=== PATIENT | female | born 1960 | race Caucasian/White ===

== ENCOUNTER 2020-03-23 11:12 | Outpatient (REF) | payer OTHER, SELFPAY ==
[2020-03-23 11:41] LABS: COVID-19 Test Negative (Negative); IDNOW Serial# 55D5AD1C
== END 2020-03-23 11:13 | disposition home or self-care (01) ==
LOC: HO.LAB 11:12
PROVIDERS: Visit Provider Internal Medicine
DX: Z20.828 Contact with and (suspected) exposure to other viral communicable diseases (principal)
CPT/HCPCS: 87635; C9803

== ENCOUNTER 2022-12-05 08:07 | Outpatient (AMB) | payer OTHER, SELFPAY ==
--- NOTE | 2022-12-05 08:14 | AM.OFFWIN_ITS ---
Intake Vital Signs 12/05/22 08:17 BP 112/76 Blood Pressure Location Rt brachial Position Sitting Pulse 103 H Pulse Source Pulse Oximeter Pulse Oximetry (%) 98 Oxygen Delivery Method Room Air Intake Visit Reasons: EP Back/rib pain (lobby) Intake Note: Patient here because she coughed and sneezed at the same time and now has mid back and rib pain which has been present for about 10 days. Patient Tobacco Use Status: Current everyday Tobacco user Allergies No Known Allergies [No Known Allergies*] Allergy (Unverified 12/05/22 08:16) Do you need a note to return to daycare/school/sports/work: Yes HPI HPI Comments History of Present Illness Details The patient presents to urgent care for evaluation of mid right back pain. She states it started about 10 days ago after coughing and sneezing at the same time. She believes she pulled a muscle. She has been using alternating naproxen ibuprofen Tylenol. She reports that the pain has been present and is not improving. 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 She has been using heating and ice [facility] Social History Patient Tobacco Use Status: Current everyday Tobacco user Review of Systems Const Denies weakness Eyes Reports no additional complaints ENT Denies dysphagia Card Reports no additional complaints, Denies dyspnea and Denies dyspnea on exertion Resp Denies cough, Denies hemoptysis, Denies dyspnea and Denies dyspnea on exertion GI Denies dysphagia Denies urinary incontinence Musc Reports back pain, Denies muscle weakness, Denies numbness and Denies tingling Neuro Denies focal weakness, Denies numbness, Denies tingling, Denies paresthesias and Denies weakness Physical Exam Vital Signs: Last Vital Signs Pulse 103 H 12/05/22 08:17 BP 112/76 12/05/22 08:17 Pulse Ox 98 12/05/22 08:17 Oxygen Delivery Method Room Air 12/05/22 08:17 Const General: healthy appearing and no acute distress Orientation/consciousness: patient oriented x3 Eyes General: appearance normal, both eyes and all related structures Pupils: Equal, round and reactive pupils present Resp Effort & Inspection: normal respiratory effort and able to speak in complete sentences General: Yes no CVA tenderness Back/Spine/Pelvis Back: no CVA tenderness Thoracic/Lumbar Spine: thoracic and lumbar spine normal to inspection, paraspinal muscle tenderness (spasm of paraspinal musculature lower thoracic) on the right greater than left and thoraco-lumbar ROM limited Pelvis: no buttock tenderness Neuro General: patient oriented x3 and Normal light touch and pain sensation Cranial nerves: Yes Equal, round and reactive pupils present Assessment & Plan Assessment & Plan (1) Muscle strain: Code(s): T14.8XXA - Other injury of unspecified body region, initial encounter Plan Patient's symptoms consistent with muscle strain/spasm. Will recommend continuation of ibuprofen/Tylenol and add Flexeril. Work note offered. Medications: New cyclobenzaprine 10 mg PO TID PRN 10 tabs 0RF muscle spasm Coding Level of Care Code Est Pt Level 3 (81902) Diagnoses Muscle strain T14.8XXA
[2022-12-05 08:17] VITALS: BP 112/76; PULSE 103; O2SAT 98
== END 2022-12-05 08:31 | disposition home or self-care (01) ==
PROVIDERS: Visit Provider Emergency Medicine
DX: T14.8XXA Other injury of unspecified body region, initial encounter (principal)
CPT/HCPCS: 99213

== ENCOUNTER 2024-01-07 08:14 | Outpatient (AMB) | payer OTHER, SELFPAY ==
--- NOTE | 2024-01-07 08:20 | MHC.OFFWIV ---
Intake Vital Signs 01/07/24 08:21 Height 5 ft 2 in Weight 163 lb BMI 29.8 BP 114/70 Blood Pressure Location Rt brachial Position Sitting Pulse 80 Pulse Source Pulse Oximeter Temp 98.4 F Temp Source Oral Pulse Oximetry (%) 92 Oxygen Delivery Method Room Air Intake Visit Reasons: EP- coughing Intake Note: Patient here for cough that has been present since last week and states she is now having SOB. Patient Tobacco Use Status: Current everyday Tobacco user Allergies No Known Allergies [No Known Allergies*] Allergy (Unverified 01/07/24 08:21) Do you need a note to return to daycare/school/sports/work: Yes HPI HPI Comments History of Present Illness Details Patient is a 63-year-old female complaining of 1 week of shortness of breath and a cough. States she is tested for COVID twice, the last being 3 days ago and she has been negative. She states she is a current smoker but has cut down on her smoking. She states the cough is keeping her up all night. She denies any fevers, sinus pain ear pain or head congestion. She states she just feels a chest heaviness in his concerns going to turn into a pneumonia. Patient states she does not use any maintenance medications for her COPD and she is not on home oxygen. [facility] Social History Patient Tobacco Use Status: Current everyday Tobacco user Review of Systems Const All systems reviewed & are unremarkable except as noted in HPI and below Physical Exam Vital Signs: Last Vital Signs Temp 98.4 F 01/07/24 08:21 Pulse 80 01/07/24 08:21 BP 114/70 01/07/24 08:21 Pulse Ox 92 01/07/24 08:21 Oxygen Delivery Method Room Air 01/07/24 08:21 BMI result Body Mass Index 29.8 Const General: cooperative, healthy appearing, comfortable and no acute distress Orientation/consciousness: patient oriented x3 Limitations: no limitations HEENT Head: Yes normal to inspection Ears: hearing grossly normal bilaterally, external ears normal and TM's normal bilaterally General nose exam: Normal external nose present, Normal nares present and No nasal discharge present Face and sinus: Yes normal facial exam and Yes sinuses nontender Mouth: Normal oral and palatal mucosa present and moist mucous membranes Throat: Yes tonsils normal, Yes uvula midline and Yes posterior oropharynx abnormal (Erythema) Eyes General: appearance normal, both eyes and all related structures Neck Neck: Yes normal visual inspection Resp Effort & Inspection: normal respiratory effort, able to speak in complete sentences, Actively coughing, no respiratory distress, not tachypneic, no tripod positioning and no use of accessory muscles Auscultation: wheezes expiratory wheezes, anterior, posterior and throughout Cardio Rate: regular rate Rhythm: regular rhythm Heart sounds: normal S1 and S2 Skin General skin exam: no rashes or lesions noted Neuro General: patient oriented x3 Extrem General: Yes normal to inspection and Yes no clubbing, cyanosis or edema Assessment & Plan Assessment & Plan (1) URI (upper respiratory infection): Code(s): J06.9 - Acute upper respiratory infection, unspecified Qualifiers: URI type: unspecified URI Qualified Code(s): J06.9 - Acute upper respiratory infection, unspecified Plan: Sent flu COVID and RSV, we will start with a Z-Golden and inhaler and a prednisone burst. If patient does have pneumonia, we will need to send Augmentin. Plan See above Orders: Orders XR chest 2V Today R05.9 - Cough, unspecified SARS-CoV2/FLU/RSV Today J06.9 - Acute upper respiratory infection, unspecified Medications: New azithromycin For 250 mg dose pack: take 500 mg today (day 1), then 250 mg for 4 days (days 2-5) PO 6 tabs 0RF albuterol sulfate 90 mcg/actuation 2 puffs inhalation Q6H PRN 8.5 grams 0RF shortness of breath or wheezing or cough prednisone 40 mg (2 x 20 mg) PO DAILY 10 tabs 0RF Coding Level of Care Code New Pt Level 4 (41307) Diagnoses Upper respiratory tract infection, unspecified type J06.9 URI type: unspecified URI
[2024-01-07 08:21] VITALS: BP 114/70; PULSE 80; TEMP 36.9; O2SAT 92; BMI 29.8
== END 2024-01-07 08:51 | disposition home or self-care (01) ==
PROVIDERS: Visit Provider Physician Assistant
DX: J06.9 Acute upper respiratory infection, unspecified (principal)
CPT/HCPCS: 99204

== ENCOUNTER 2024-01-07 08:50 | Outpatient (REF) | payer OTHER, SELFPAY | END 2024-01-07 08:51 | disposition home or self-care (01) | LOC: HO.LAB 08:50 | PROVIDERS: Visit Provider Physician Assistant | DX: Z13.89 Encounter for screening for other disorder (principal) ==

== ENCOUNTER 2024-01-07 08:51 | Outpatient (REF) | payer OTHER, SELFPAY ==
--- NOTE | ~2024-01-07 | XR_ITS ---
EXAMINATION: XR CHEST CLINICAL INFORMATION: Cough COMPARISON: Chest radiograph 04/13/2019 TECHNIQUE: 2 views of the chest were obtained. FINDINGS: The lungs are adequately expanded. No focal consolidation. No pleural effusions or pneumothorax. The cardiomediastinal silhouette is within normal limits. Moderate age-indeterminate compression deformity of lower thoracic vertebral body with loss of about 60% of the vertebral body height with mild retropulsion of the posterior cortex, new from prior exam. The exact level is difficult to ascertain from the lateral images. Also noted mild anterior wedging of mid thoracic vertebral body, also new from prior exam. XR/XR chest 2V IMPRESSION: No acute pulmonary disease. Age-indeterminate compression deformities of thoracic vertebral bodies, new from prior exam. Electronically signed by: Ki Dixon MD 01/07/2024 10:45 AM EDT
[2024-01-07 11:56] LABS: Influenza A PCR NEGATIVE (Negative); Influenza B PCR NEGATIVE (Negative); Resp Syncy Virus RNA Qual PCR NEGATIVE (Negative); SARS COV2 PCR INHOUSE NEGATIVE (Negative)
== END 2024-01-07 08:52 | disposition home or self-care (01) ==
LOC: HO.HMGCX 08:51
PROVIDERS: Visit Provider Physician Assistant
DX: R05.9 Cough, unspecified (principal); J06.9 Acute upper respiratory infection, unspecified
CPT/HCPCS: 0241U; 71046

== ENCOUNTER 2024-07-12 08:10 | Outpatient (REF) | payer OTHER, SELFPAY ==
[2024-07-12 12:01] LABS: Influenza A PCR POSITIVE (Negative); Influenza B PCR NEGATIVE (Negative); Resp Syncy Virus RNA Qual PCR NEGATIVE (Negative); SARS COV2 PCR INHOUSE NEGATIVE (Negative)
== END 2024-07-12 08:11 | disposition home or self-care (01) ==
LOC: HO.LAB 08:10
PROVIDERS: Visit Provider Nurse Practitioner Family
DX: J06.9 Acute upper respiratory infection, unspecified (principal); R06.2 Wheezing; R05.1 Acute cough
CPT/HCPCS: 0241U; 94640

== ENCOUNTER 2024-07-12 08:10 | Outpatient (AMB) | payer OTHER, SELFPAY ==
--- NOTE | 2024-07-12 08:45 | AM.OFFWIN_ITS ---
Intake Vital Signs 07/12/24 08:46 Weight 175 lb BP 110/76 Blood Pressure Location Rt brachial Position Sitting Pulse 102 H Pulse Source Pulse Oximeter Temp 98.2 F Temp Source Oral Pulse Oximetry (%) 91 L Oxygen Delivery Method Room Air Intake Visit Reasons: EP-headache,diarreah,body ache,cough,sob Intake Note: Patient here for cough,headache, diarrhea, body aches, SOB which started Friday. Patient Tobacco Use Status: Current everyday Tobacco user Allergies No Known Allergies [No Known Allergies*] Allergy (Unverified 07/12/24 08:48) Do you need a note to return to daycare/school/sports/work: Yes HPI HPI Comments History of Present Illness Details 63 y/o female patient who presents to [facility] walk [facility] clinic with c/o URI symptoms since Friday. Reports SOB, coughing, Headaches, Diarrhea and Body aches. She is a daily cigarette smoker [facility] Medical History (Updated 07/12/24 @ 09:16 by Nancy Badillo NP) Cough Wheezing on auscultation Acute respiratory disease Social History Patient Tobacco Use Status: Current everyday Tobacco user Review of Systems Const All systems reviewed & are unremarkable except as noted in HPI and below Physical Exam Vital Signs: Last Vital Signs Temp 98.2 F 07/12/24 08:46 Pulse 102 H 07/12/24 08:46 BP 110/76 07/12/24 08:46 Pulse Ox 91 L 07/12/24 08:46 Oxygen Delivery Method Room Air 07/12/24 08:46 Const General: cooperative and no acute distress Nutritional Appearance: obese Orientation/consciousness: patient oriented x3 Resp Effort & Inspection: normal respiratory effort and Actively coughing Auscultation: no crackles, no rales, rhonchi and wheezes scattered wheezes Cardio Heart sounds: S1 normal heart sound present and S2 normal heart sound present Neuro General: patient oriented x3 Office Procedures Nebulizer Treatment Nebulizer Treatment [id number]/MDI RX initial, or Nebulizer Subsequent Treatment Office Meds ipratropium 0.5 mg-albuterol 3 mg (2.5 mg base)/3 mL nebulization soln Performing Provider: Nancy Badillo NP Performing [place] [facility] Administered by: Nancy Badillo NP on 07/12/24 09:12 Dose Route Admin Location Dispensed Lot Number Expiration Date 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 3 mL 07/09/25 90092-832-59 AHP Assessment & Plan Assessment & Plan (1) Acute respiratory disease: Code(s): J06.9 - Acute upper respiratory infection, unspecified Plan: Ordered SARs Ordered Neb Treatment in Office Ordered Prednisone, Abx (2) Wheezing on auscultation: Code(s): R06.2 - Wheezing Plan: Ordered SARs Ordered Neb Treatment in Office Ordered Prednisone, Abx (3) Cough: Code(s): R05.9 - Cough, unspecified Qualifiers: Cough type: acute Qualified Code(s): R05.1 - Acute cough Plan: Ordered SARs Ordered Neb Treatment in Office Ordered Prednisone, Abx Orders: Orders SARS-CoV2/FLU/RSV Today J06.9 - Acute upper respiratory infection, unspecified AMB Nebulizer Treatment Today J06.9 - Acute upper respiratory infection, unspecified Medications: New azithromycin 500 mg PO DAILY 3 days 3 tabs 0RF J06.9 - Acute upper respiratory infection, unspecified, R05.9 - Cough, unspecified prednisone 50 mg PO DAILY 5 days 5 tabs 0RF J06.9 - Acute upper respiratory infection, unspecified, R05.9 - Cough, unspecified, R06.2 - Wheezing benzonatate 200 mg (2 x 100 mg) PO TID 90 caps 0RF R05.9 - Cough, unspecified Refilled albuterol sulfate 90 mcg/actuation 2 puffs inhalation Q6H PRN 8.5 grams 0RF shortness of breath or wheezing or cough R05.1 - Acute cough, R06.2 - Wheezing Coding Level of Care Code Est Pt Level 4 (39035) Diagnoses Acute respiratory disease J06.9 Wheezing on auscultation R06.2 Acute cough R05.1 Cough type: acute CPT Codes Nebulizer Treatment - Nebulizer Treatment, initial or subsequent: [id number]- Nebulizer/MDI RX initial, or Nebulizer Subsequent Treatment ([id number]) Time Spent (min) 20
[2024-07-12 08:46] VITALS: BP 110/76; PULSE 102; TEMP 36.8; O2SAT 91
== END 2024-07-12 09:36 | disposition home or self-care (01) ==
PROVIDERS: Visit Provider Nurse Practitioner Family
DX: J06.9 Acute upper respiratory infection, unspecified (principal); R06.2 Wheezing; R05.1 Acute cough